=== PATIENT | male | born 1965 | race Caucasian/White ===

== ENCOUNTER → 2017-01-01 | Outpatient (CLI) | payer OTHER ==
[2017-01-01 14:36] LABS: BUN 16 mg/dL (7-18)
[2017-01-01 14:42] LABS: GFR (ESTIMATED) 64 ML/MIN (>60)
--- NOTE | 2017-01-02 07:22 | RADIOLOGY REPORT PS360 ---
CT SOFT TISSUE NECK W/CONTRAST INDICATION: MASS OF LEFT SUMANDIBULAR REGION ORDERING PHYSICIAN: Miguel A Rosas MD PATIENT AGE: 51 years COMPARISON: None TECHNIQUE: Axial images are obtained with contrast. Sagittal and coronal reformatted images are reviewed as well. FINDINGS: There are scattered small bilateral cervical lymph nodes. Left jugulodigastric nodes are present measuring up to 18 x 11 mm. Nodular opacities are present along the posterior aspect of the left parotid gland measuring up to 10 mm consistent with small lymph nodes. There is a 21 x 10 mm lymph node just inferior to the angle of the mandible on the left with an additional 12 by 8mm lymph node just posterior to this region just lateral to the submandibular gland. An 18 x 13 mm lymph node is present inferior to the body of the mandible on the left. This node is anterior to the submandibular gland. The left submandibular gland is slightly enlarged compared to the right side with some mild heterogeneous density centrally in the left submandibular gland measures 4 cm cephalad to caudad breast the right subareolar gland measures 3 cm cephalad to caudad. No abnormal fluid collections are evident. The orbits have an unremarkable appearance as do the paranasal sinuses. No mastoid effusion. The thyroid gland has an unremarkable appearance. The trachea is somewhat deviated towards the right at thoracic inlet however, there is no paratracheal mass. IMPRESSION: 1. Mild cervical adenopathy is present as described above with the largest nodes in the left submandibular region. Small nodes are present along the left parotid gland as well 2. Slightly enlarged left submandibular gland without obvious mass.
== END ==
LOC: RAD 14:03 → LAB 14:03 → RAD 14:30
PROVIDERS: Otolaryngology
DX: R22.0 Localized swelling, mass and lump, head (principal)

== ENCOUNTER → 2017-01-22 | Outpatient (CLI) | payer OTHER ==
[2017-01-22 09:26] LABS: HEMOGLOBIN 17.2 g/dL (14.1-18.0); LYMPH # 1.9 K/mm3 (0.7-4.5); LYMPH % 20.3 % (10-50)
[2017-01-22 13:22] LABS: BUN 15 mg/dL (7-18)
[2017-01-22 13:24] LABS: GFR (ESTIMATED) 70 ML/MIN (>60)
--- NOTE | 2017-01-22 17:59 | RADIOLOGY REPORT PS360 ---
US BIOPSY OR PARACENTESIS, US SUBMANDIBULAR (PAROTID ETC) HISTORY: SUBMANDIBULAR MASS' ORDERING PHYSICIAN: Miguel A Rosas MD PATIENT AGE: 51 years COMPARISON: CT scan of 01/01/2017 Ultrasound submandibular gland:. Biopsy ultrasound performed demonstrating mildly enlarged lymph nodes in the anterior submandibular area measuring up to 1.6 by 1 cm. A larger node is present somewhat more posterior Measuring approximately 3 x 1 cm. A smaller node is present along the posterior parotid measuring 0.8 cm. No fluid collections are evident. TECHNIQUE: Following obtaining informed consent, using aseptic technique and local anesthesia with buffered lidocaine, fine-needle aspiration was first performed of the anterior submandibular using sonographic guidance. 2 passes were made into the nodule with a 25-gauge needle. Specimen was given to cytology. After that 3 passes were made into the larger nodule toward the angle of the mandible with specimens given for RPMI and cytology for both nodes. The patient tolerated the procedure well without evidence of immediate complications and left the ultrasound suite in stable condition. CYTOLOGY:Pending IMPRESSION: Uneventful ultrasound-guided left submandibular lymph node biopsy x2
== END ==
LOC: LAB 08:58 → RAD 08:58
PROVIDERS: Otolaryngology
PROC: 07923ZX Drainage of Left Neck Lymphatic, Percutaneous Approach, Diagnostic (ICD-10-PCS; principal; 2017-01-22)
DX: R59.0 Localized enlarged lymph nodes (principal); D49.0 Neoplasm of unspecified behavior of digestive system; R22.0 Localized swelling, mass and lump, head